=== PATIENT | female | born 1990 | race Caucasian/White ===

== ENCOUNTER 2017-05-10 09:04 | Inpatient (IN) | payer MEDICAID ==
--- NOTE | 2017-05-10 07:37 | PCM.LDHP ---
L&D History of Present Illness - General Date of Service: 05/10/17 Admit Problem/Dx: Admission Diagnosis/Problem Admission Diagnosis/Problem 05/10/17 07:23 39-1/7 week intrauterine , suspected macrosomia Source of Information: Patient History Limitations: Reports: No Limitations - History of Present Illness Introduction:: Connie is a 27-year-old 4 para 3003 white female admitted for induction of labor because suspected macrosomia. Patient has had a previous delivery which was 9 pounds in size. She has an HAYLEE of 05/16/2017 placing her at 39-1/7 weeks gestational age. Previous delivery included a 9 lbs. 0 oz. born in 2013. Cervix is adequately dilated at 2+ centimeters, 70% effacement, -3 station, soft, midline. Baby is in a vertex presentation. 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 Patient's is dated by a certain last menstrual periods started 08/09/2016 and lasted for approximately 5 days. Not using any control time conception. Her cycles are regular, constant and patient is definitely a onset of the last period. She had menarche at age 10. Her deliveries previously have included the followin. Male infant born 08/26/2010 at 42 weeks gestational age, 3 hours of labor, 7 lbs. 3 oz. Baby delivered in [place]. Child's name is [place] 2. Female infant born 12/06/2012 after 12 hours labor, 9 lbs. 0 oz., , born in [place]. Child's name is Rona 3. Female infant born 01/09/2016, 12 hours labor, 8 lbs. 7 oz., , 6 [place]- [place], child's name is María course has been relatively unremarkable. She has had some anxiety but this is been manageable. She declined genetic evaluation. She has had some depression symptoms also. Her E PDS score on 01/17/2017 was 7. Group B strep screen was negative. Breast-feed. Her first visit was at 8 weeks gestational age. Early on Was Consistent with Dates. She Had 2 Other Ultrasounds after Her 10/04/2016 Ultrasound That Also Supported Dates. These Were Done on 12/27/2016 and 04/21/2017. Her Weight Gain during the Course of the Was from a Pre- Weight of 286 Pounds to a Final Weight of 300.4 Pounds for a 24.4 [place] Weight Gain. The Patient's Pregravid/Initial BMI Was 44.5. Vital signs have been stable. Fundal height has been ahead of schedule but this is a very difficult fundal height evaluation because of the patient's body habitus. Patient has received her influenza vaccination on 2016 and her T dap on 03/14/2017. She is rubella immune. Laboratory testing and shows blood to be O+ with a negative MRI screening. First laboratory testing showed hemoglobin 13.3 g deciliter and platelets which were 289,000. Pap smear was normal. Rubella titer showed immunity. RPR is nonreactive. Hepatitis B and HIV assays were both negative. Chlamydia and gonorrhea testing were negative. Second trimester labs showed a hemoglobin looks mildly decreased at 11.8 g/dL at which time patient was started on iron therapy. Her platelet count was 237,000 and her diabetes screen was 115. B strep screen was negative. Allergies: amoxicillin and latex. Medications: 1. Tylenol when necessary 2. vitamins Past medical history: 1. Normal spontaneous vaginal delivery 3 -1 child macrosomic 9 lbs. 0 oz. 2. Anxiety and depression 3. Allergies to amoxicillin and latex both which cause rash. Past surgical history: Unremarkable Family history: Mother is alive with adult-onset diabetes and history of depression. Father is alive but patient does not know his health history. One half-brother and 3/2 sisters are alive. One has a GI problem. Maternal grandmother is alive and has adult-onset diabetes mellitus. Paternal grandfather is secondary to cancer type unknown. Maternal grandfather and paternal grandfather both have health history unknown. No anesthesia, bleeding, blood clotting or Precis problems other than miscarriages are noted in the family. Social history: Patient is but getting . 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 She lives in [place]. She does not use any significant loss of alcohol drugs or tobacco. Review of systems: Skin: Negative Cardiovascular: No chest pain or exercise intolerance Respiratory: No shortness of breath or infectious symptoms Breasts: No changes other than those associated with . Patient plans to breast feed GI: Negative : Changes associated only Musculoskeletal: Edema in lower extremities on occasion Neurological: Negative Physical exam: In general patient is well-developed well-nourished massively obese white female in no acute distress. Blood pressure last which clinic was 110/74, weight was 300.4 pounds was pregravid weight 286. heart rate was 144. Height is 5 feet 1. Skin is warm dry without lesions. HEENT, neck and back within normal limits. Lungs are clear with good breath sounds in all lung goodman. Cardiovascular exam shows regular rate and rhythm. Breast exam deferred have been done at first visit and found to be normal. Obese, soft, nontender. Uterus measures to 48 cm but is very difficult to evaluate because of body habitus. Cervix is as stated above. 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 39-1/7 week interim , suspected macrosomia, elective induction of labor. 2. Group B strep screen is negative 3. Patient plans to breast-feed 4. Patient is okay with epidural in labor and delivery 5. History of depression and anxiety Plan: 1. Pitocin induction of labor followed by artificial rupture membranes augmentation. 2. Epidural when necessary as desired by patient for analgesia. 3. Support nursing decision 4. Anticipate normal spontaneous vaginal delivery.
[2017-05-10] MEDS: Lactated Ringers 1,000 ML IV SCH ×4 (09:45→18:27)
[2017-05-10] MEDS ORDERED: Lactated Ringers 1,000 ML ONE (09:51)
[2017-05-10] MEDS ORDERED: Oxytocin/Lactated Ringers 10 UNIT/1,000 ML BAG IV ONE (09:52)
[2017-05-10] MEDS ORDERED: Sodium Chloride 0.9% 10 ML Syringe FLUSH PRN (11:35)
[2017-05-10] MEDS ORDERED: Ondansetron 4 MG/2 ML SDV IVPUSH PRN (11:35)
[2017-05-10] MEDS: Oxytocin/Lactated Ringers 10 UNIT/1,000 ML BAG IV SCH ×2 (11:40→14:57)
[2017-05-10] MEDS ORDERED: Oxytocin/Lactated Ringers 10 UNIT/1,000 ML BAG IV SCH (11:45)
[2017-05-10] MEDS ORDERED: fentaNYL 100 MCG/2 ML SDV EPIDUR PRN (12:39)
[2017-05-10] MEDS ORDERED: ePHEDrine 50 MG/ML SDV IVPUSH PRN (12:39)
[2017-05-10] MEDS ORDERED: diphenhydrAMINE 50 MG/ML SDV IVPUSH PRN (12:39)
[2017-05-10] MEDS ORDERED: Bupivacaine/fentaNYL/NS 100 ML Bag EPIDUR SCH (12:45)
--- NOTE | 2017-05-10 13:32 | PCM.PREANE ---
Preanesthetic Assessment - Anesthesia/Transfusion/Family Hx Anesthesia History: Prior Anesthesia Without Reaction Family History of Anesthesia Reaction: No Transfusion History: No Prior Transfusion(s) Type of Transfusion Reactions: Reports: Unknown - Review of Systems General: No Symptoms Pulmonary: No Symptoms Cardiovascular: No Symptoms Gastrointestinal: No Symptoms, Nausea (during preg not now) Neurological: No Symptoms Other: Reports: Depression, Anxiety (history) - Physical Assessment O2 Sat by Pulse Oximetry: 99 Respiratory Rate: 20 Vital Signs: Last Vital Signs Temp 99 F 05/10/17 09:30 Pulse 110 H 05/10/17 09:30 Resp 20 05/10/17 09:30 BP 140/74 05/10/17 09:30 Pulse Ox 99 05/10/17 09:30 Height: 5 ft 8 in Weight: 134.717 kg ASA Class: 2 Mental Status: Alert & Oriented x3 Dentition: Reports: Normal Dentition Thyro-Mental Finger Breadths: 3 Mouth Opening Finger Breadths: 3 ROM/Head Extension: Full Lungs: Clear to Auscultation, Normal Respiratory Effort Cardiovascular: Regular Rate, Regular Rhythm - Lab Values: Laboratory Last Values WBC 7.73 K/mm3 (3.98-10.04) 05/10/17 11:52 RBC 3.98 M/mm3 (3.98-5.22) 05/10/17 11:52 Hgb 11.4 gm/L (11.2-15.7) 05/10/17 11:52 Hct 34.7 % (34.1-44.9) 05/10/17 11:52 MCV 87.2 fl (79.4-94.8) 05/10/17 11:52 MCH 28.6 pg (25.6-32.2) 05/10/17 11:52 MCHC 32.9 g/dl (32.2-35.5) 05/10/17 11:52 RDW Std Deviation 44.9 fL (36.4-46.3) 05/10/17 11:52 Plt Count 247 K/mm3 (182-369) 05/10/17 11:52 MPV 9.6 fl (9.4-12.3) 05/10/17 11:52 Neut % (Auto) 66.9 % (34.0-71.1) 05/10/17 11:52 Lymph % (Auto) 23.8 % (19.3-51.7) 05/10/17 11:52 Boundary % (Auto) 7.9 % (4.7-12.5) 05/10/17 11:52 Eos % (Auto) 1.2 (0.7-5.8) 05/10/17 11:52 Baso % (Auto) 0.1 % (0.1-1.2) 05/10/17 11:52 Neut # (Auto) 5.17 K/mm3 (1.56-6.13) 05/10/17 11:52 Lymph # (Auto) 1.84 K/mm3 (1.18-3.74) 05/10/17 11:52 Boundary # (Auto) 0.61 K/mm3 (0.24-0.36) H 05/10/17 11:52 Eos # (Auto) 0.09 K/mm3 (0.04-0.36) 05/10/17 11:52 Baso # (Auto) 0.01 K/mm3 (0.01-0.08) 05/10/17 11:52 - Allergies Allergies/Adverse Reactions: Allergies Allergy/AdvReac Type Severity Reaction Status Date / Time amoxicillin Allergy Rash Verified 05/10/17 11:43 latex Allergy Rash Verified 01/09/16 07:24 - Blood Blood Available: No - Acknowledgements Anesthesia Type Planned: Epidural Pt an Appropriate Candidate for the Planned Anesthesia: Yes Alternatives and Risks of Anesthesia Discussed w Pt/Guardian: Yes Pt/Guardian Understands and Agrees with Anesthesia Plan: Yes PreAnesthesia Questionnaire Cardiovascular History: Reports: None Respiratory History: Reports: None Gastrointestinal History: Reports: GERD (with preg) 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: Reports: : 4 (39 1 weeks) Para: 3 Psychiatric History: Reports: Anxiety, Depression Other Psychiatric History: has been medicated for anxiety/depression and stopped medication when she found out she was Oncologic (Cancer) History: Reports: None - SUBSTANCE USE Smoking Status *Q: Never Smoker Tobacco Use Within Last Twelve Months: No Second Hand Smoke Exposure: No Days Per Week of Alcohol Use: 0 Recreational Drug Use History: No - HOME MEDS Home Medications: Home Meds Prenat Vit Comb.10/Iron/Fa/Dha [Vitafol-OB + DHA] 1 each PO DAILY 08/25/15 [ History] Acetaminophen [Tylenol Extra Strength] 500 mg PO BEDTIME PRN 11/22/15 [History] Ibuprofen [IJD: Ibuprofen] 600 mg PO Q4H PRN #30 tablet 01/10/16 [Rx] - CURRENT (IN HOUSE) MEDS Current Meds: Current Medications Diphenhydramine HCl (Benadryl) 25 mg IVPUSH Q6H PRN PRN Reason: pruritis Ephedrine Sulfate (Ephedrine Sulfate) 5 mg IVPUSH ASDIRECTED PRN PRN Reason: Hypotension Fentanyl (Sublimaze) 100 mcg EPIDUR Q3H PRN PRN Reason: Pain Fentanyl/Bupivacaine HCl (Fentanyl/Bupivacaine/Ns 2 Mcg-0.125% 100 Ml) 100 ml EPIDUR ASDIRECTED ANTHONY Lactated Ringer's (Ringers, Lactated) 1,000 mls @ 100 mls/hr IV ASDIRECTED ANTHONY Oxytocin/Lactated Ringer's (Pitocin In Lr 10 Units/1,000 Ml) 10 unit in 1,000 mls @ 12 mls/hr IV TITRATE ANTHONY; 2 MUNITS/MIN PRN Reason: Protocol Oxytocin/Lactated Ringer's (Pitocin In Lr 10 Units/1,000 Ml) 10 unit in 1,000 mls @ 500 mls/hr IV .CONTINUOUS ANTHONY PRN Reason: Protocol Ondansetron HCl (Zofran) 4 mg IVPUSH Q4H PRN PRN Reason: Nausea/Vomiting Sodium Chloride (Saline Flush) 10 ml FLUSH ASDIRECTED PRN PRN Reason: Keep Vein Open Discontinued Medications Lactated Ringer's (Ringers, Lactated) Confirm Administered Dose 1,000 mls @ as directed .ROUTE .STK-MED ONE Stop: 05/10/17 09:52 Oxytocin/Lactated Ringer's (Pitocin In Lr 10 Units/1,000 Ml) Confirm Administered Dose 10 unit in 1,000 mls @ as directed IV .STK-MED ONE Stop: 05/10/17 09:53
--- NOTE | 2017-05-10 19:32 | PCM.SN ---
- Free Text/Narrative Note: Delivery note: Connie is a 27-year-old 4 now para 4004 with an HAYLEE of 05/16/2017 presently at 39-1/7 weeks gestational age. She was admitted this a.m. for Pitocin/AROM induction of labor. heart tones were reassuring. Contractions were initiated with Pitocin and at midday patient's membranes were ruptured resulting in clear amniotic fluid. She continued to make steady progress and became completely dilated by approximately 1900 hrs. The patient pushed for approximately 5 minutes and at 1908 hours she delivered a viable, hancock, female named Valeria Robles in a left occiput anterior position , over an intact perineum. Baby weighed 3660 g (8 pounds 1.1 ounce), was 20.5 inches in length and had Apgars of 8 and 9. Baby was placed on mom's abdomen and nose and mouth were bulb suctioned.. Cord blood was obtained. Pitocin was administered IV after delivery of the baby to facilitate increase in tone and decrease risk of bleeding. Perineum was found to be intact and no lacerations were noted. The placenta delivered in a Mallory reason dictation, appeared intact and complete and was discarded per patient desire. Estimated blood loss was 200 mL. Patient plans to breast-feed. Condition: Good
[2017-05-10] MEDS ORDERED: Benzocaine/Menthol 20%-0.5% Spray 56 GM Canister TOP PRN (19:43)
[2017-05-10] MEDS ORDERED: Lanolin 100% Cream 7 GM Tube TOP PRN (19:43)
[2017-05-10] MEDS ORDERED: Witch Hazel Medicated Pads 100/Jar TOP PRN (19:43)
[2017-05-10] MEDS ORDERED: Acetaminophen 325 MG Tab PO PRN (19:43)
[2017-05-10] MEDS ORDERED: Bupivacaine 0.25% 10 ML SDV ONE (22:22)
[2017-05-10] MEDS: Ibuprofen 600 MG Tab PO PRN (22:46)
[2017-05-11] MEDS: Docusate Sodium 100 MG Cap PO PRN ×2 (08:25→20:22)
[2017-05-11] MEDS: Ibuprofen 600 MG Tab PO PRN ×3 (08:25→20:23)
--- NOTE | 2017-05-11 08:29 | PCM48HPAN ---
Post Anesthesia Note - EVALUATION WITHIN 48HRS OF ANESTHETIC Vital Signs in Normal Range: Yes Patient Participated in Evaluation: Yes Respiratory Function Stable: Yes Airway Patent: Yes Cardiovascular Function Stable: Yes Hydration Status Stable: Yes Pain Control Satisfactory: Yes Nausea and Vomiting Control Satisfactory: Yes Mental Status Recovered: Yes - COMMENTS/OBSERVATIONS Free Text/Narrative:: Connie denies any headache or numbness and tingling in her legs. No further questions at this time.
[2017-05-11] MEDS ORDERED: Prenatal Multivitamin with Calcium/Folic Acid/Iron Tab PO SCH (09:00)
--- NOTE | 2017-05-11 11:55 | PCM.DCSUM1 ---
Discharge Summary - Hospital Course Free Text/Narrative:: Connie is a 27-year-old 4 now para 4004 with an HAYLEE of 05/16/2017 presently at 39-1/7 weeks gestational age. She was admitted this a.m. for Pitocin/AROM induction of labor. heart tones were reassuring. Contractions were initiated with Pitocin and at midday patient's membranes were ruptured resulting in clear amniotic fluid. She continued to make steady progress and became completely dilated by approximately 1900 hrs. The patient pushed for approximately 5 minutes and at 1908 hours she delivered a viable, hancock, female infant named Valeria Robles in a left occiput anterior position , over an intact perineum. Baby weighed 3660 g (8 pounds 1.1 ounce), was 20.5 inches in length and had Apgars of 8 and 9. Baby was placed on mom's abdomen and nose and mouth were bulb suctioned.. Cord blood was obtained. Pitocin was administered IV after delivery of the baby to facilitate increase in tone and decrease risk of bleeding. Perineum was found to be intact and no lacerations were noted. The placenta delivered in a Mallory reason dictation, appeared intact and complete and was discarded per patient desire. Estimated blood loss was 200 mL. Patient plans to breast-feed. patient is doing well. She has minimal lochia although did pass a clot on the morning after delivery. This was small in nature. She is voiding well and nursing without problems. She is ambulating without concerns. She is desiring discharge home. - Discharge Data Discharge Date: 05/11/17 Discharge Disposition: Home, Self-Care 01 Condition: Good - Patient Instructions Diet: Regular Diet as Tolerated (Nursing diet was increased calories and calcium as directed) Activity: As Tolerated (No intercourse or tampons until seen back) Driving: May Drive Today Showering/Bathing: May Shower (May take a bath) - Discharge Plan Home Medications: Home Meds Prenat Vit Comb.10/Iron/Fa/Dha [Vitafol-OB + DHA] 1 each PO DAILY 08/25/15 [ History] Acetaminophen [Tylenol Extra Strength] 500 mg PO BEDTIME PRN 11/22/15 [History] Ibuprofen [IJD: Ibuprofen] 600 mg PO Q4H PRN #30 tablet 09/25/16 [Rx] Acetaminophen [Tylenol] 650 mg PO Q4H PRN tablet 05/11/17 [Rx] Ibuprofen [IJD: Ibuprofen] 600 mg PO Q4H PRN tablet 05/11/17 [Rx] Referrals: Mike Meadows MD [Primary Care Provider] - (Return to clinicDr. Meadows2 weeks.) - Discharge Summary/Plan Comment DC Time >30 min.: No Discharge Summary/Plan Comment: Discharge instructions: 1. Discharge home 2. Diet, activity and follow-up discussed with patient. Recommend nursing diet with increased calories and calcium. 3. Precautions given concern increased pain, bleeding, temperature, signs/ symptoms of DVT/PE. 4. Medications per home medication was printed, discussed with and given to the patient. 5. Return to clinic-Dr. Meadows[facility] in 2 weeks. Diagnosis: Term -delivered Condition: Good - Patient Data Vitals - Most Recent: Last Vital Signs Temp 36.6 C 05/11/17 03:23 Pulse 105 H 05/11/17 03:23 Resp 18 05/11/17 03:23 BP 133/77 05/11/17 03:23 Pulse Ox 97 05/11/17 03:23 Weight - Most Recent: 134.717 kg I&O - Last 24 hours: Intake & Output 05/10/17 05/11/17 05/11/17 22:59 06:59 14:59 Intake Total 360 180 Balance 360 180 Lab Results - Last 24 hrs: Laboratory Results - last 24 hr 05/10/17 05/11/17 Range/Units 11:52 06:25 WBC 7.73 6.94 (3.98-10.04) K/mm3 RBC 3.98 3.59 L (3.98-5.22) M/mm3 Hgb 11.4 10.2 L (11.2-15.7) gm/L Hct 34.7 31.6 L (34.1-44.9) % MCV 87.2 88.0 (79.4-94.8) fl MCH 28.6 28.4 (25.6-32.2) pg MCHC 32.9 32.3 (32.2-35.5) g/dl RDW Std Deviation 44.9 45.8 (36.4-46.3) fL Plt Count 247 208 (182-369) K/mm3 MPV 9.6 9.6 (9.4-12.3) fl Neut % (Auto) 66.9 (34.0-71.1) % Lymph % (Auto) 23.8 (19.3-51.7) % [place] % (Auto) 7.9 (4.7-12.5) % Eos % (Auto) 1.2 (0.7-5.8) Baso % (Auto) 0.1 (0.1-1.2) % Neut # (Auto) 5.17 (1.56-6.13) K/mm3 Lymph # (Auto) 1.84 (1.18-3.74) K/mm3 [place] # (Auto) 0.61 H (0.24-0.36) K/mm3 Eos # (Auto) 0.09 (0.04-0.36) K/mm3 Baso # (Auto) 0.01 (0.01-0.08) K/mm3 Med Orders - Current: Current Medications Acetaminophen (Tylenol) 650 mg PO Q4H PRN PRN Reason: mild pain or fever Benzocaine/Menthol (Dermoplast Pain Relief Cranberry) 0 gm TOP ASDIRECTED PRN PRN Reason: Perineal Comfort Measure Last Admin: 05/10/17 22:37 Dose: 1 spray Docusate Sodium (Colace) 100 mg PO BID PRN PRN Reason: Constipation Last Admin: 05/11/17 08:25 Dose: 100 mg Emollient Ointment (Lansinoh Hpa) 0 gm TOP ASDIRECTED PRN PRN Reason: Sore Nipples Ibuprofen (Motrin) 600 mg PO Q4H PRN PRN Reason: Mild pain or fever Last Admin: 05/11/17 08:25 Dose: 600 mg Prenat Multivit/Authorization Coordinator/Iron/Folic Ac ( Plus Iron) 1 each PO DAILY ANTHONY Last Admin: 05/11/17 08:25 Dose: 1 each Witch Denia (Tucks) 1 pad TOP ASDIRECTED PRN PRN Reason: Hemorrhoid pain Last Admin: 05/10/17 22:37 Dose: 1 applic Discontinued Medications Diphenhydramine HCl (Benadryl) 25 mg IVPUSH Q6H PRN PRN Reason: pruritis Ephedrine Sulfate (Ephedrine Sulfate) 5 mg IVPUSH ASDIRECTED PRN PRN Reason: Hypotension Fentanyl (Sublimaze) 100 mcg EPIDUR Q3H PRN PRN Reason: Pain Last Admin: 05/10/17 14:19 Dose: 100 mcg Fentanyl/Bupivacaine HCl (Fentanyl/Bupivacaine/Ns 2 Mcg-0.125% 100 Ml) 100 ml EPIDUR ASDIRECTED ANTHONY Last Admin: 05/10/17 14:18 Dose: 100 ml Lactated Ringer's (Ringers, Lactated) Confirm Administered Dose 1,000 mls @ as directed .ROUTE .STK-MED ONE Stop: 05/10/17 09:52 Oxytocin/Lactated Ringer's (Pitocin In Lr 10 Units/1,000 Ml) Confirm Administered Dose 10 unit in 1,000 mls @ as directed IV .STK-MED ONE Stop: 05/10/17 09:53 Lactated Ringer's (Ringers, Lactated) 1,000 mls @ 100 mls/hr IV ASDIRECTED ANTHONY Last Admin: 05/10/17 18:27 Dose: 100 mls/hr Oxytocin/Lactated Ringer's (Pitocin In Lr 10 Units/1,000 Ml) 10 unit in 1,000 mls @ 12 mls/hr IV TITRATE ANTHONY; 2 MUNITS/MIN PRN Reason: Protocol Last Titration: 05/10/17 16:50 Dose: 14 munits/min, 84 mls/hr Oxytocin/Lactated Ringer's (Pitocin In Lr 10 Units/1,000 Ml) 10 unit in 1,000 mls @ 500 mls/hr IV .CONTINUOUS ANTHONY PRN Reason: Protocol Ondansetron HCl (Zofran) 4 mg IVPUSH Q4H PRN PRN Reason: Nausea/Vomiting Sodium Chloride (Saline Flush) 10 ml FLUSH ASDIRECTED PRN PRN Reason: Keep Vein Open *Q Meaningful Use (DIS) - VTE *Q VTE Criteria *Q: - Stroke *Q Stroke Criteria *Q: - AMI *Q AMI Criteria *Q:
[2017-05-11 20:01] VITALS: BP 151/91
--- NOTE | 2017-05-12 09:37 | PCM.SN ---
- Free Text/Narrative Note: Patient seen and dismissed today 05/12/2017. See Dr Meadows 2 weeks. Tylenol & Motrin for pain.
== END 2017-05-12 10:50 | disposition home or self-care (01) | DRG 775 ==
LOC: JD.OB 09:04 → OBSVTOIN 19:08 → JD.OB 05-11 03:57
PROVIDERS: ADMIT Obstetrics & Gynecology; ATTEND Obstetrics & Gynecology
PROC: 10E0XZZ Delivery of Products of Conception, External Approach (ICD-10-PCS; principal; 2017-05-10)
PROC: 3E033VJ Introduction of Other Hormone into Peripheral Vein, Percutaneous Approach (ICD-10-PCS; 2017-05-10)
PROC: 10907ZC Drainage of Amniotic Fluid, Therapeutic from Products of Conception, Via Natural or Artificial Opening (ICD-10-PCS; 2017-05-10)
PROC: 00HU33Z Insertion of Infusion Device into Spinal Canal, Percutaneous Approach (ICD-10-PCS; 2017-05-10)
PROC: 3E0R3BZ Introduction of Anesthetic Agent into Spinal Canal, Percutaneous Approach (ICD-10-PCS; 2017-05-10)
DX: O36.63X0 Maternal care for excessive fetal growth, third trimester, not applicable or unspecified (principal); Z3A.39 39 weeks gestation of pregnancy; Z37.0 Single live birth; Z88.1 Allergy status to other antibiotic agents; Z91.040 Latex allergy status
CPT/HCPCS: 36415; 51702; 59409; 85025; 85027; A9270-GY; J2590; J3010; J7120

== ENCOUNTER 2018-04-25 07:39 | Emergency (ER) | payer MEDICAID ==
[2018-04-25 07:49] VITALS: BP 161/99
--- NOTE | 2018-04-25 08:08 | EDM.PDOC ---
ED HPI GENERAL MEDICAL PROBLEM - General Chief Complaint: ENT Problem Stated Complaint: DENTAL COMPLAINT Time Seen by Provider: 04/25/18 07:56 Source of Information: Reports: Patient, RN Notes Reviewed - History of Present Illness INITIAL COMMENTS - FREE TEXT/NARRATIVE: 28 year old female with R lower dental pain that started a few days ago, getting worse, unable to sleep last night due to severe throbbing pain R jaw. No fever or chills. No longer getting good relief from tylenol. 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: Acetaminophen Right Tooth/Teeth Pain Score (Numeric/FACES): 8 - Related Data Allergies Allergy/AdvReac Type Severity Reaction Status Date / Time amoxicillin Allergy Rash Verified 04/25/18 07:51 latex Allergy Rash Verified 04/25/18 07:51 Home Meds: Home Meds Acetaminophen/HYDROcodone [[place] 325-5 MG] 1 tab PO Q6H PRN #30 tablet 04/25/18 [Rx] Clindamycin HCl 300 mg PO Q6HR #30 capsule 04/25/18 [Rx] Past Medical History - Past Health History Medical/Surgical History: Denies Medical/Surgical History HEENT History: Reports: Impaired Vision Other HEENT History: wears corrective lenses Cardiovascular History: Reports: None Respiratory History: Reports: None Gastrointestinal History: Reports: GERD 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: Psychiatric History: Reports: Anxiety, Depression Other Psychiatric History: has been medicated for anxiety/depression and stopped medication when she found out she was Oncologic (Cancer) History: Reports: None Social & Family History - Family History Family Medical History: Noncontributory - Tobacco Use Smoking Status *Q: Never Smoker - Caffeine Use Caffeine Use: Reports: Coffee - Recreational Drug Use Recreational Drug Use: No ED ROS ENT - Review of Systems Review Of Systems: See Below Constitutional: Denies: Fever, Chills HEENT: Reports: Dental Pain Respiratory: Denies: Shortness of Breath Cardiovascular: Denies: Chest Pain GI/Abdominal: Denies: Abdominal Pain, Nausea, Vomiting Musculoskeletal: Reports: No Symptoms Skin: Denies: Rash Neurological: Reports: No Symptoms ED EXAM, ENT - Physical Exam Exam: See Below General Appearance: Alert, Mild Distress Eye Exam: Bilateral Eye: PERRL Ears: Normal External Exam, Normal Canal, Normal TMs Nose: Normal Inspection Mouth/Throat: Normal Inspection, Other (tender R lower 1st and post. molars, R lower gum mildly inflamed, not visibly swollen) Head: Atraumatic, Other (tender R lat jaw). No: Facial Swelling Neck: Supple, Full Range of Motion, Other (no visible swelling). No: Lymphadenopathy (L), Lymphadenopathy (R) Course - Vital Signs Last Recorded V/S: Last Vital Signs Temp 97.3 F 04/25/18 07:46 Pulse 90 04/25/18 07:46 Resp 20 04/25/18 07:46 BP 161/99 H 04/25/18 07:46 Pulse Ox 99 04/25/18 07:46 Departure - Departure Time of Disposition: 08:15 Disposition: Home, Self-Care 01 Condition: Fair Clinical Impression: Pain, dental - Discharge Information Prescriptions: Clindamycin HCl 300 mg PO Q6HR #30 capsule Acetaminophen/HYDROcodone [[place] 325-5 MG] 1 tab PO Q6H PRN #30 tablet PRN Reason: Pain Instructions: Opioid Pain Medicine Information Referrals: Annemarie Garcia TIE PRESSER [Primary Care Provider] - Forms: ED Department Discharge Additional Instructions: aleve 2 times daily for pain and inflamation. Clindamycin 300 mg 4 times daily. You may take take tylenol in addition up to 3 times daily for extra pain relief, you may take hydrocodone if needed for severe pain not relieved by tylenol and aleve. Do not take tylenol and hydrocodone at the same time. Do not drive or work when taking hydrocodone. Follow up with dentist as soon as possible.
== END 2018-04-25 08:22 | disposition home or self-care (01) ==
LOC: JD.ED 07:39
DX: K08.89 Other specified disorders of teeth and supporting structures (principal); Z88.1 Allergy status to other antibiotic agents; Z91.040 Latex allergy status
CPT/HCPCS: 99283

== ENCOUNTER 2019-05-19 09:58 | Emergency (ER) | payer MEDICAID ==
--- NOTE | 2019-05-19 10:48 | EDM.PDOC ---
ED HPI GENERAL MEDICAL PROBLEM - General Chief Complaint: ENT Problem Stated Complaint: TOOTH PAIN Time Seen by Provider: 05/19/19 10:43 - History of Present Illness INITIAL COMMENTS - FREE TEXT/NARRATIVE: 29-year-old female presents the emergency room with dental pain. This started 4 to 5 days ago progressively getting worse she has had chronic problems with this wisdom tooth. She has not been able to get into see her dentist because of insurance but now she has insurance and is on a waiting list. She will try and get in sooner if at all possible she will call tomorrow morning. Patient denies any fevers or chills no facial swelling as of yet however the pain seems to radiate into her right ear. The tooth affected is the rear tooth on the right side lower. right mouth Pain Score (Numeric/FACES): 9 - Related Data Allergies Allergy/AdvReac Type Severity Reaction Status Date / Time amoxicillin Allergy Rash Verified 05/19/19 10:11 latex Allergy Rash Verified 05/19/19 10:11 Home Meds: Home Meds Acetaminophen/HYDROcodone [Hudson 325-5 MG] 1 - 2 tab PO Q6H PRN #20 tablet 05/19 [Rx] Erythromycin Base [Erythromycin] 333 mg PO Q8H #30 tablet. 05/19/19 [Rx] Past Medical History - Past Health History Medical/Surgical History: Denies Medical/Surgical History HEENT History: Reports: Impaired Vision Other HEENT History: wears corrective lenses Cardiovascular History: Reports: None Respiratory History: Reports: None Gastrointestinal History: Reports: [employer] History: Reports: Psychiatric History: Reports: Anxiety, Depression Other Psychiatric History: has been medicated for anxiety/depression and stopped medication when she found out she was Oncologic (Cancer) History: Reports: None Social & Family History - Family History Family Medical History: Noncontributory - Tobacco Use Smoking Status *Q: Never Smoker - Caffeine Use Caffeine Use: Reports: None - Recreational Drug Use Recreational Drug Use: No ED ROS ENT - Review of Systems Review Of Systems: See Below Constitutional: Reports: No Symptoms HEENT: Reports: Dental Pain, Ear Pain Respiratory: Reports: No Symptoms Cardiovascular: Reports: No Symptoms GI/Abdominal: Reports: No Symptoms ED EXAM, ENT - Physical Exam Exam: See Below Exam Limited By: No Limitations General Appearance: Alert, No Apparent Distress, Other (He is uncomfortable but doing okay) Eye Exam: Bilateral Eye: Normal Inspection Ears: Normal External Exam, Normal Canal, Hearing Grossly Normal, Normal TMs Nose: Normal Inspection, Normal Mucousa, No Blood Mouth/Throat: Normal Inspection, Normal Lips, Normal Oropharynx, Other (Rear lower tooth has significant swelling around the area mild erythema noted. No tenderness noted in the cheek) Head: Atraumatic, Normocephalic Respiratory/Chest: No Respiratory Distress, Lungs Clear Cardiovascular: Regular Rate, Rhythm, No Edema, No Murmur Course - Vital Signs Last Recorded V/S: Last Vital Signs Temp 36.4 C 05/19/19 10:08 Pulse 90 05/19/19 10:08 Resp 20 05/19/19 10:08 BP 143/100 H 05/19/19 10:08 Pulse Ox 97 05/19/19 10:08 Departure - Departure Time of Disposition: 10:52 Disposition: Home, Self-Care 01 Clinical Impression: Pain, dental - Discharge Information Prescriptions: Acetaminophen/HYDROcodone [Hudson 325-5 MG] 1 - 2 tab PO Q6H PRN #20 tablet PRN Reason: Pain Erythromycin Base [Erythromycin] 333 mg PO Q8H #30 tablet.dr Referrals: Annemarie Garcia, [employer] [Primary Care Provider] - Additional Instructions: Return to the emergency room with any questions problems or worsening symptoms. Follow-up with your dentist as soon as he can. Take the antibiotics as directed. Use the pain medication as needed but do not take any more than absolutely necessary. The pain medication can be potentiated or act stronger because of the antibiotics that you are taking so start out with a applications systems engineer dose taking 1 every 6-8 hours and then increase only if necessary. And allow 12 hours after using this medication before driving or returning to work Sepsis Event Note - Evaluation Sepsis Screening Result: No Definite Risk - Focused Exam Vital Signs: Vital Signs Temp Pulse Resp BP Pulse Ox 05/19/19 10:08 36.4 C 90 20 143/100 H 97 Date Exam was Performed: 05/19/19 Time Exam was Performed: 10:43
== END 2019-05-19 11:15 | disposition home or self-care (01) ==
LOC: JD.ED 09:58
CPT/HCPCS: 99282; 99283

== ENCOUNTER 2021-10-20 13:21 | Emergency (ER) | payer MEDICAID ==
[2021-10-20 14:25] VITALS: BP 153/100; PULSE 86
[2021-10-20 14:38] LABS: ESTIMATED GFR 102 mL/min (>60)
[2021-10-20] MEDS ORDERED: Ketorolac 30 MG/ML SDV IVPUSH ONE (15:34)
[2021-10-20 15:35] LABS: CORONAVIRUS COVID-19 NAA NEGATIVE (NEGATIVE)
[2021-10-20] MEDS ORDERED: Sodium Chloride 0.9% 10 ML Syringe FLUSH ONE (16:19)
[2021-10-20] MEDS ORDERED: Iopamidol 755 Mg/ML 100 ML Bottle IVPUSH ONE (16:19)
[2021-10-20] MEDS ORDERED: Sodium Chloride 0.9% 100 ML IV SCH (16:30)
== END 2021-10-20 17:25 | disposition home or self-care (01) ==
LOC: JD.ED 13:21
DX: R07.89 Other chest pain (principal); Z20.822 Contact with and (suspected) exposure to COVID-19; Z88.0 Allergy status to penicillin; Z91.040 Latex allergy status
CPT/HCPCS: 0240U; 36415; 71045; 71275; 80053; 81001; 81025; 83735; 84484; 85025; 85379; 86140; 87086; 93005; 96361; 96374; 99285; J1885; J3490; Q9967

== ENCOUNTER 2023-01-14 19:31 | Emergency (ER) | payer MEDICAID ==
[2023-01-14] MEDS ORDERED: Lactated Ringers 1,000 ML IV ONE (19:53)
[2023-01-14] MEDS ORDERED: Ondansetron 4 MG/2 ML SDV IVPUSH ONE (19:53)
[2023-01-14 20:15] LABS: BASOPHILS ABSOLUTE AUTO 0.1 K/mm3 (0.0-0.2); BASOPHILS PERCENT AUTO 0.6 % (0.0-1.0); EOSINOPHILS ABSOLUTE AUTO 0.2 K/mm3 (0.0-0.4); HEMATOCRIT 42.7 % (37.0-47.0); HEMOGLOBIN 14.5 gm/dl (12.0-16.0); IMMATURE GRAN ABSOLUTE AUTO 0.04 K/mm3 (0.00-0.05); IMMATURE GRAN PERCENT AUTO 0.4 % (0.0-0.4); LYMPHOCYTES ABSOLUTE AUTO 3.5 K/mm3 (1.0-4.8); LYMPHOCYTES PERCENT AUTO 36.5 % (24.0-44.0); MEAN CORPUSCULAR HEMOGLOBIN 30.1 pg (28.0-32.0); MEAN CORPUSCULAR VOLUME 88.6 fl (83.0-99.0); MEAN PLATELET VOLUME 9.4 fl (9.4-12.3); MONOCYTES ABSOLUTE AUTO 0.6 K/mm3 (0.0-0.8); MONOCYTES PERCENT AUTO 6.4 % (0.0-8.0); NEUTROPHILS ABSOLUTE AUTO 5.2 K/mm3 (1.8-7.7); NEUTROPHILS PERCENT AUTO 54.1 % (41.0-71.0); PLATELET COUNT,PLT 319 K/mm3 (150-400); RED BLOOD CELL COUNT 4.82 M/mm3 (4.10-5.30); WHITE BLOOD CELL COUNT,WBC 9.53 K/mm3 (3.9-11.3)
[2023-01-14 20:20] LABS: APPEARANCE,URINE SLT CLOUDY (Clear); BILIRUBIN,URINE NEGATIVE (Negative); COLOR,URINE YELLOW (Yellow); GLUCOSE,URINE NEGATIVE (Negative); KETONES,URINE NEGATIVE (Negative); LEUKOCYTE ESTERASE,URINE NEGATIVE (Negative); NITRITE,URINE NEGATIVE (Negative); OCCULT BLOOD,URINE 3+ (Negative); PH,URINE 5.5 (5.0-8.0); PROTEIN,URINE 1+ (Negative); UROBILINOGEN,URINE 0.2 (0.2-1.0)
[2023-01-14 20:32] LABS: PROTHROMBIN TIME 9.9 SECONDS (9.7-12.0)
[2023-01-14 20:33] LABS: PTT,PARTIAL THROMBOPLSTIN TIME 29.2 SECONDS (21.7-31.4)
[2023-01-14 20:36] LABS: BACTERIA,URINE FEW /hpf (FEW); MUCUS,URINE FEW /hpf (FEW); RBC,URINE >100 /hpf (0-5); WBC,URINE 0-5 /hpf (0-5)
[2023-01-14 20:38] LABS: INR < 0.93
[2023-01-14 20:43] LABS: A/G RATIO 0.7 (1-2); ALANINE AMINOTRANSFERASE,ALT 24 U/L (14-59); ALBUMIN 3.4 g/dl (3.4-5.0); ALKALINE PHOSPHATASE 44 U/L (46-116); ASPARTATE AMNIOTRANSFERASE,AST 17 U/L (15-37); BILIRUBIN TOTAL 0.2 mg/dL (0.2-1.0); BLOOD UREA NITROGEN,BUN 12 mg/dL (7-18); BUN/CREATININE RATIO 13.3 (14-18); CALCIUM 9.2 mg/dL (8.5-10.1); CARBON DIOXIDE,CO2 25 mEq/L (21-32); CHLORIDE,CL 103 mEq/L (98-107); CREATININE 0.9 mg/dL (0.55-1.02); EST CRCL DRUG DOSING (CG) 87.27 mL/min; ESTIMATED GFR 87 mL/min (>60); GLUCOSE RANDOM 110 mg/dL (70-99); SODIUM,NA 139 mEq/L (136-145)
[2023-01-14 20:44] LABS: HCG QUANTITATIVE < 1.0 mIU/mL
[2023-01-14 21:29] VITALS: BP 146/84; PULSE 90
== END 2023-01-14 21:25 | disposition home or self-care (01) ==
LOC: JD.ED 19:31
DX: N92.6 Irregular menstruation, unspecified (principal); Z79.899 Other long term (current) drug therapy; Z88.1 Allergy status to other antibiotic agents; Z91.040 Latex allergy status
CPT/HCPCS: 36415; 80053; 81001; 84702; 85025; 85610; 85730; 86850; 86900; 86901; 96374; 99283; J2405; J7120; 99284